=== PATIENT | male | born 1990 | race Caucasian/White ===

== ENCOUNTER 2017-07-09 22:23 | Emergency (ER) | payer BC, OTHER ==
[~2017-07-09] VITALS: Ht 177.8 cm; Wt 88.8 kg
[2017-07-09 22:26] VITALS: TEMP 36.9; Ht 177.8 cm; Wt 88.8 kg
[2017-07-09] MEDS ORDERED: PROPARACAINE HCL 0.5% OP SOLN 15 ML BTL OP STA (22:36)
[2017-07-09] MEDS ORDERED: MULT-506 PO (22:44)
[2017-07-10 00:40] VITALS: BP 165/100; PULSE 67; O2SAT 97
--- NOTE | 2017-07-10 04:07 | EMERGENCY ROOM VISIT NOTE ---
ED Visit Note First contact with patient: 22:30 CHIEF COMPLAINT: Red, irritated eye HISTORY OF PRESENT ILLNESS: This 26-year-old presents to the emergency department with complaining of redness in both eyes after walking into [employer] and rubbing his eyes after having his hands on the table that was just cleaned. Mild constant pain, irritating in nature, which is rated as 5/10. There is clear discharge from the eyes and the lids are not crusted. No difficulty with vision. The patient does not wear contacts. There is no known trauma to the eye. The patient has not had any other upper respiratory symptoms. No injury to the eye. No foreign body to the eye. The patient does not have a foreign body sensation. No headache, rash, nausea or vomiting. REVIEW OF SYSTEMS: A 6 system review of systems was completed with positives and pertinent negatives in the HPI. ALLERGIES: None MEDICATIONS: None PMH: None SOCIAL HISTORY: No drug use PHYSICAL EXAM: Vital Signs: Reviewed Nurse's notes, stable VSs GENERAL: Pleasant male, in no acute distress, well-developed, well-nurished. SKIN: Warm, dry. No cyanosis. No petechia. EYES: Both pupils are equal round and reactive to light and accomadation, EOMs intact. There is clear discharge in the eyes and moderate injection. There is no foreign body of the eyelid with lid eversion. Fundoscopic exam reveals no hemorrages, papiledema, or other abnormalities. No foreign body on the cornea, no hyphema. No uptake of flourescein visible with UV light. No corneal abrasion and no corneal ulcer. Visual Accuity is reviewed from nursing EMERGENCY DEPARTMENT COURSE: I examined the patient. A slit lamp exam was performed and is as described above. PH was 6.5 bilaterally. Both eyes were irrigated by Benedict lens of 1 L normal saline and he felt much better. Two drops of naphazolin were put in both eyes and the patient was instructed as noted below. The patient was discharged home in good condition. Differential diagnosis includes conjunctivitis, corneal abrasion, iritis, foreign body, allergic reaction and other etiologies were considered. DIAGNOSIS: Acute irritant conjunctivitis DISCHARGE INSTRUCTIONS: As below Current/Historical Medications Scheduled Multivitamin (Multivitamin), 1 TAB PO DAILY Allergies Coded Allergies: No Known Allergies (Verified , 07/09/17) Vital Signs Date Time Temp Pulse Resp B/P (MAP) Pulse Ox O2 Delivery O2 Flow Rate FiO2 07/10/17 00:40 67 16 165/100 97 Room Air 07/09/17 22:26 36.9 64 18 137/81 100 Room Air Medications Administered Medications (Trade) Dose Ordered Sig/Hilary Route Start Time Stop Time Status Last Admin Dose Admin Proparacaine HCl (Alcaine 0.5% Oph Soln) 2 drops NOW STAT OP 07/09/17 22:36 07/09/17 22:39 DC 07/09/17 22:45 2 DROPS Naphazoline HCl/ Pheniramine Maleate (Visine-A Oph Soln) 2 drops Q4HWA ONCE OP 07/10/17 08:00 07/10/17 08:00 DC 07/10/17 00:36 2 DROPS Departure Information Impression Primary Impression: Conjunctivitis Dispostion Home / Self-Care Condition GOOD Referrals Sergey Sofia D.O. Forms WORK / SCHOOL INSTRUCTIONS, HOME CARE DOCUMENTATION FORM, IMPORTANT VISIT INFORMATION Patient Instructions Conjunctivitis Irritation Cause, My [facility] Additional Instructions Naphazolin drops: 2 drops to each eye every 4 hours as needed for eye irritation. Avoid rubbing your eyes. Follow up with de ionizer operator in one to 2 days if symptoms persist. Call for an appointment. Return to the ED for increasing pain or changes in vision.
[2017-07-10] MEDS ORDERED: NAPHAZOLIN/PHENIRAMIN OPH SOLN 75 DROPS/5 ML BTL OP ONE (08:00)
== END 2017-07-10 00:40 | disposition home or self-care (01) ==
LOC: C.EDB 22:23 → C.EDA 07-10 00:40
DX: H10.31 Unspecified acute conjunctivitis, right eye (principal); H10.32 Unspecified acute conjunctivitis, left eye